=== PATIENT | male | born 1955 | race African-American/Black ===

== ENCOUNTER 2019-02-11 19:17 | Inpatient (IN) | payer OTHER ==
[2019-02-11 23:15] VITALS: BMI 23.7
--- NOTE | 2019-02-11 23:34 | HP ---
CIWA Score Nausea/Vomitin-No Nausea/No Vomiting Muscle Tremors: 4-Moderate,w/Arms Extend Anxiety: 4-Mod. Anxious/Guarded Agitation: 1-Slight > Activity Paroxysmal Sweats: 3 Orientation: 0-Oriented Tacttile Disturbances: 0-None Auditory Disturbances: 0-None Visual Disturbances: 0-None Headache: 0-None Present CIWA-Ar Total Score: 12 - Admission Criteria OASAS Guidelines: Admission for Medically Managed Detox: Requires at least one of the followin. CIWA greater than 12 2. Seizures within the past 24 hours 3. Delirium tremens within the past 24 hours 4. Hallucinations within the past 24 hours 5. Acute intervention needed for co occurring medical disorder 6. Acute intervention needed for co occurring psychiatric disorder 7. Severe withdrawal that cannot be handled at a lower level of care (continued vomiting, continued diarrhea, abnormal vital signs) requiring intravenous medication and/or fluids 8. Patient presents the following: CIWA greater than 12 Admission Criteria Met: Admission criteria met Admission ROS [facility] Chief Complaint: Having alcohol withdrawal. Allergies/Adverse Reactions: Allergies Allergy/AdvReac Type Severity Reaction Status Date / Time No Known Allergies Allergy Verified 02/11/19 23:06 History of Present Illness: First detox admission for this 63 YOM, states mandated into treatment by Child Protective Services and mild complaints of alcohol withdrawal. Mostly anxious. Alcohol use since age 21. States uses 4-5 days/week. Nicotine use since age 17. Denies seizures, blackouts, overdoses. PMHx: HTN, Glaucoma (L) eye; Cataract extraction (L) eye; Blind (R) eye. Gait unsteady since partial blindness. Unsure of medications. To call family in a.m. to get information. MHHx: Denies depression. Denies thoughts of harming self or others. Search Terms: Shabbir Trinh, 1955 Search Date: 02/12/2019 12:32:16 AM The Drug Utilization Report below displays all of the controlled substance prescriptions, if any, that your patient has filled in the last twelve months. The information displayed on this report is compiled from pharmacy submissions to the Department, and accurately reflects the information as submitted by the pharmacies. This report was requested by: Kate Alicea | Reference #: [id number] There are no results for the search terms that you entered. Exam Limitations: No Limitations - Ebola screening Have you traveled outside of the country in the last 21 days: No (N) Have you had contact with anyone from an Ebola affected area: No Have you been sick,other than usual withdrawal symptoms: No (Denies recent exposure to measles) Do you have a fever: No - Review of Systems Constitutional: Diaphoresis EENT: reports: Cataracts (Removed from (L) eye 1 month ago.), Blurred Vision, Other (No vision (R) eye.) Respiratory: reports: No Symptoms reported Cardiac: reports: No Symptoms Reported GI: reports: No Symptoms Reported : reports: No Symptoms Reported Musculoskeletal: reports: Joint Swelling (States "water in knee". Denies pain at this time), Other (States gait unsteady since loss of vision in (R) eye) Integumentary: reports: No Symptoms Reported Neuro: reports: No Symptoms reported Endocrine: reports: No Symptoms Reported Hematology: reports: No Symptoms Reported Psychiatric: reports: Judgement Intact, Orientated x3, Anxious Patient History - PPD History Previous Implant?: Yes Documented Results: Negative w/o proof Implanted On Prior R Admission?: No PPD to be Administered?: Yes - Smoking Cessation Smoking history: Current every day smoker Have you smoked in the past 12 months: Yes Aproximately how many cigarettes per day: 20 Hx Chewing Tobacco Use: No Initiated information on smoking cessation: Yes 'Breaking Loose' booklet given: 02/11/19 - Substance & Tx. History Hx Alcohol Use: Yes Hx Substance Use: Yes Substance Use Type: Alcohol Hx Substance Use Treatment: No - Substances abused Alcohol Substance route: Oral Frequency: Daily Amount used: liquor- 1/2 pint. beer- 1 can Age of first use: 21 Date of last use: 02/10/19 Admission Physical Exam [facility] - Vital Signs Vital Signs: Vital Signs - 24 hr 02/11/19 02/11/19 23:12 23:17 Temperature 98.3 F 98.3 F Pulse Rate 55 L 55 L Respiratory 18 18 Rate Blood Pressure 113/70 113/70 - Physical General Appearance: Yes: Appropriately Dressed, Mild Distress, Tremorous, Sweating, Anxious HEENTM: Yes: Normocephalic, Normal Voice, Pharynx Normal, Orbits ((R) eye ball w / deformity and w/o vision.), Other ((L) eye w/ IOL.) Respiratory: Yes: Lungs Clear, Normal Breath Sounds, No Respiratory Distress Neck: Yes: No masses,lesions,Nodules, Supple Breast: Yes: Breast Exam Deferred Cardiology: Yes: Regular Rate, Murmur, Irregular Abdominal: Yes: Non Tender, Soft, Increased Bowel Sounds Genitourinary: Yes: Within Normal Limits Back: Yes: Normal Inspection Musculoskeletal: Yes: full range of Motion, Other (Gait slightly insteady at time.) Extremities: Yes: Normal Capillary Refill, Tremors (Gross tremors) Neurological: Yes: Fully Oriented, Alert, Motor Strength 5/5 Integumentary: Yes: Normal Color, Dry (Dry skin except for increased facial moisture), Warm Lymphatic: Yes: Within Normal Limits - Diagnostic (1) Alcohol dependence with uncomplicated withdrawal Current Visit: Yes Status: Acute (2) Essential (primary) hypertension Current Visit: Yes Status: Chronic (3) Blind right eye Current Visit: Yes Status: Chronic (4) History of cataract extraction with lens replacement Current Visit: Yes Status: Chronic (5) Nicotine dependence, uncomplicated Current Visit: Yes Status: Chronic Qualifiers: Nicotine product type: cigarettes Qualified Code(s): F17.210 - Nicotine dependence, cigarettes, uncomplicated (6) Glaucoma Current Visit: Yes Status: Chronic Qualifiers: Glaucoma type: unspecified Laterality: left Qualified Code(s): H40.9 - Unspecified glaucoma (7) Unsteady gait Current Visit: Yes Status: Chronic Cleared for Admission S - Detox or Rehab [facility] Level of Care: Medically Managed Detox Regimen/Protocol: Valium Inpatient Rehab Admission - Rehab Decision to Admit Inpatient rehab admission?: No
[2019-02-12] MEDS ORDERED: ACETAMINOPHEN 325 MG TABLET (FP) PO PRN ×2 (00:14)
[2019-02-12] MEDS ORDERED: IBUPROFEN 400 MG TABLET (FP) PO PRN (00:14)
[2019-02-12] MEDS ORDERED: NICOTINE POLACRILEX 2 MG GUM BUC PRN (00:14)
[2019-02-12] MEDS ORDERED: BISMUTH SUBSALICYLATE 524 MG/30 ML UD PO PRN (00:14)
[2019-02-12] MEDS ORDERED: MAGNESIUM HYDROX 2400MG/30ML ORAL SUSPENSION 30 ML CUP PO PRN (00:14)
[2019-02-12] MEDS ORDERED: diazePAM 5 MG TABLET PO ONE (00:14)
[2019-02-12] MEDS ORDERED: METHOCARBAMOL 500 MG TABLET PO PRN (00:14)
[2019-02-12] MEDS ORDERED: MAG HYDROX/AL HYDROX/SIMETH 30 ML UNIT-DOSE CUP PO PRN (00:14)
[2019-02-12] MEDS ORDERED: MENTHOL/PHENOL 1 EACH UD MM PRN (00:14)
[2019-02-12] MEDS ORDERED: MAGNESIUM CITRATE 300 ML BOTTLE PO PRN (00:14)
[2019-02-12] MEDS ORDERED: diazePAM 5 MG TABLET PO PRN (00:14)
[2019-02-12] MEDS ORDERED: PROCHLORPERAZINE MALEATE 5 MG TABLET PO PRN (00:14)
[2019-02-12] MEDS: diazePAM 5 MG TABLET PO SCH ×3 (06:15→22:19)
--- NOTE | 2019-02-12 08:26 | EKG ---
Test Reason : Blood Pressure : / mmHG Vent. Rate : 102 BPM Atrial Rate : 102 BPM P-R Int : 126 ms QRS Dur : 084 ms QT Int : 336 ms P-R-T Axes : 064 033 071 degrees QTc Int : 437 ms SINUS TACHYCARDIA WITH PREMATURE ATRIAL COMPLEXES SEPTAL INFARCT , AGE UNDETERMINED ABNORMAL ECG NO PREVIOUS ECGS AVAILABLE Confirmed by RACHEL DERAS MD ([id number]) on 02/12/2019 8:25:45 AM Referred By: JENA COLEMAN Confirmed By:RACHEL DERAS MD
[2019-02-12] MEDS: PRENATAL VITAMINS W/ FOLIC ACID TABLET (FP) PO SCH (10:26)
[2019-02-12] MEDS: NICOTINE 21 MG/24 HOURS TOPICAL PATCH TD SCH (10:27)
--- NOTE | 2019-02-12 11:54 | PN ---
[facility] CIWA - CIWA Score Nausea/Vomitin-No Nausea/No Vomiting Muscle Tremors: 2 Anxiety: 1-Mildly Anxious Agitation: 1-Slight > Activity Paroxysmal Sweats: 4-Forehead w/Sweat Beads Orientation: 0-Oriented Tacttile Disturbances: 1-Very Mild Itch/Numbness Auditory Disturbances: 0-None Visual Disturbances: 0-None Headache: 1-Very Mild CIWA-Ar Total Score: 10 [facility] Progress Note (SOAP) Subjective: Sweats an mild headache. Objective: 02/12/19 11:56 Vital Signs 02/12/19 02/12/19 05:57 09:35 Temperature 98.4 F 97.6 F Pulse Rate 86 98 H Respiratory 18 18 Rate Blood Pressure 131/95 131/68 Assessment: 02/12/19 11:56 AOX3, in no respiratory distress EENT: WNL full ROM withdrawal symptoms persists. Plan: Continue detox increase fluids monitor for withdrawal symptoms.
[2019-02-12] MEDS: THIAMINE HCL 100 MG TABLET (FP) PO SCH (22:19)
[2019-02-12] MEDS: MELATONIN 5 MG TABLETS PO PRN (22:20)
[2019-02-13] MEDS: diazePAM 5 MG TABLET PO SCH ×2 (07:34→17:10)
[2019-02-13] MEDS: PRENATAL VITAMINS W/ FOLIC ACID TABLET (FP) PO SCH (10:27)
[2019-02-13] MEDS: NICOTINE 21 MG/24 HOURS TOPICAL PATCH TD SCH (10:27)
[2019-02-13 10:57] LABS: URINE APPEARANCE CLEAR; URINE BILIRUBIN NEGATIVE (NEGATIVE); URINE COLOR YELLOW; URINE GLUCOSE (UA) NEGATIVE (NEGATIVE); URINE KETONE NEGATIVE (NEGATIVE); URINE LEUK ESTERASE NEGATIVE (NEGATIVE); URINE NITRITE NEGATIVE (NEGATIVE); URINE PROTEIN NEGATIVE (NEGATIVE)
[2019-02-13 10:58] LABS: HEMATOCRIT 30.6 % (35.4-49); HEMOGLOBIN 9.3 GM/dL (11.7-16.9); MCHC 30.4 g/dl (32.0-35.9); MEAN CELL VOLUME 65.3 fl (80-96); PLATELET COUNT 167 K/MM3 (134-434); RDW 23.2 % (11.9-15.9); WHITE BLOOD COUNT 4.6 K/mm3 (4.0-10.0)
[2019-02-13 11:08] LABS: MCH 19.8 pg (25.7-33.7)
[2019-02-13 13:30] LABS: ALBUMIN 3.6 g/dl (3.4-5.0); ALK PHOS 87 U/L (45-117); ANION GAP 11 MMOL/L (8-16); BILIRUBIN,TOTAL 0.7 mg/dL (0.2-1); BLOOD UREA NITROGEN 34 mg/dL (7-18); CALCIUM 9.4 mg/dL (8.5-10.1); CHLORIDE 100 mmol/L (98-107); CO2 25 mmol/L (21-32); CREATININE 1.2 mg/dL (0.55-1.3); POTASSIUM 3.4 mmol/L (3.5-5.1); SGOT/AST 64 U/L (15-37); SGPT/ALT 52 U/L (13-61); SODIUM 136 mmol/L (136-145); TOT PROT 8.5 g/dl (6.4-8.2)
[2019-02-13 13:32] LABS: GLUCOSE,RANDOM 121 mg/dL (74-106)
[2019-02-13] MEDS ORDERED: cloNIDine HCL 0.1 MG TABLET PO PRN (14:24)
--- NOTE | 2019-02-13 14:32 | PN ---
[facility] CIWA - CIWA Score Nausea/Vomitin-No Nausea/No Vomiting Muscle Tremors: 2 Anxiety: 1-Mildly Anxious Agitation: 0-Normal Activity Paroxysmal Sweats: No Perspiration Orientation: 0-Oriented Tacttile Disturbances: 0-None Auditory Disturbances: 0-None Visual Disturbances: 0-None Headache: 0-None Present CIWA-Ar Total Score: 3 [facility] Progress Note (SOAP) Subjective: Tremor, anxious; patient requested discharge tomorrow at 8am Objective: 02/13/19 14:23 Last Vital Signs Temp Pulse Resp BP Pulse Ox 97.9 F 111 H 18 153/98 02/13/19 13:59 02/13/19 13:59 02/13/19 13:59 02/13/19 13:59 Tachycardia most likely r/t anxiety/withdrawal; elevated b/p (denies htn) start clonidine 0.1mg PO q8hr prn if b/p > 140/90 Laboratory Tests 02/13/19 02/13/19 02/13/19 07:50 07:50 07:50 WBC 4.6 RBC 4.70 Hgb 9.3 L Hct 30.6 L MCV 65.3 L MCH 19.8 L MCHC 30.4 L RDW 23.2 H Plt Count 167 MPV 9.0 Sodium 136 Potassium 3.4 L Chloride 100 Carbon Dioxide 25 Anion Gap 11 BUN 34 H Creatinine 1.2 Creat Clearance w eGFR 61.35 Random Glucose 121 H Calcium 9.4 Total Bilirubin 0.7 AST 64 H ALT 52 Alkaline Phosphatase 87 Total Protein 8.5 H Albumin 3.6 Urine Color Yellow Urine Appearance Clear Urine pH 6.0 Ur Specific [place] 1.017 Urine Protein Negative Urine Glucose (UA) Negative Urine Ketones Negative Urine Blood Negative Urine Nitrite Negative Urine Bilirubin Negative Urine Urobilinogen 2.0 Ur Leukocyte Esterase Negative RPR Titer 02/13/19 07:50 WBC RBC Hgb Hct MCV MCH MCHC RDW Plt Count MPV Sodium Potassium Chloride Carbon Dioxide Anion Gap BUN Creatinine Creat Clearance w eGFR Random Glucose Calcium Total Bilirubin AST ALT Alkaline Phosphatase Total Protein Albumin Urine Color Urine Appearance Urine pH Ur Specific [place] Urine Protein Urine Glucose (UA) Urine Ketones Urine Blood Urine Nitrite Urine Bilirubin Urine Urobilinogen Ur Leukocyte Esterase RPR Titer Nonreactive Labs reviewed: K 3.4, bun 34, serum glucose 121 Assessment: 02/13/19 14:31 Withdrawal symptoms Noted with mild hypokalemia, azotemia and hyperglycemia Plan: Continue detox Encouraged PO water intake Elevated blood pressure: most likely r/t withdrawal; start clonidine 0.1mg PO q8hr prn if b/p > 140/90 Hypokalemia: K Dur 40 Meq PO x 2 doses Azotemia: encouraged PO water hydration Hyperglycemia: most likely r/t withdrawal, follow up with PCP for monitoring ( patient not able to have repeated fasting serum glucose as he requested discharge by 8am tomorrow as he wants to meet with his son before his son goes to school.
[2019-02-13] MEDS ORDERED: POTASSIUM CHLORIDE TABS 20 MEQ TABLET.ER (FP) PO ONE ×2 (14:40→20:00)
[2019-02-13] MEDS: MELATONIN 5 MG TABLETS PO PRN (22:14)
[2019-02-13] MEDS: THIAMINE HCL 100 MG TABLET (FP) PO SCH (22:14)
[2019-02-14] MEDS ORDERED: diazePAM 5 MG TABLET PO ONE (06:00)
[2019-02-14 06:04] VITALS: BP 126/78; PULSE 83; TEMP 98.2
--- NOTE | 2019-02-14 14:46 | DS ---
[facility] Detox Discharge Summary Admission Date: 02/11/19 Discharge Date: 02/14/19 - History Present History: Alcohol Dependence Additional Comments: PATIENT REFUSED AFTERCARE REFERRAL. PATIENT ADVISED TO CONSIDER LOCAL 12-STEP / AA OUTPATIENT SUPPORT GROUPS FOR AFTERCARE. PATIENT WAS DISCHARGED FROM DETOX UNIT IN STABLE MEDICAL CONDITION. Pertinent Past History: HTN, Blind In Right Eye, Glaucoma, History Of Cataract Extraction with Lens Replacement (Left Eye), Unsteady Gait. - Physical Exam Results Vital Signs: Vital Signs Temperature 98.2 F 02/14/19 06:03 Pulse Rate 83 02/14/19 06:03 Respiratory Rate 16 02/14/19 06:03 Blood Pressure 126/78 02/14/19 06:03 O2 Sat by Pulse Oximetry (%) Pertinent Admission Physical Exam Findings: WITHDRAWAL SYMPTOMS. Laboratory Tests 02/13/19 02/13/19 02/13/19 07:50 07:50 07:50 WBC 4.6 RBC 4.70 Hgb 9.3 L Hct 30.6 L MCV 65.3 L MCH 19.8 L MCHC 30.4 L RDW 23.2 H Plt Count 167 MPV 9.0 Sodium 136 Potassium 3.4 L Chloride 100 Carbon Dioxide 25 Anion Gap 11 BUN 34 H Creatinine 1.2 Creat Clearance w eGFR 61.35 Random Glucose 121 H Calcium 9.4 Total Bilirubin 0.7 AST 64 H ALT 52 Alkaline Phosphatase 87 Total Protein 8.5 H Albumin 3.6 Urine Color Yellow Urine Appearance Clear Urine pH 6.0 Ur Specific [place] 1.017 Urine Protein Negative Urine Glucose (UA) Negative Urine Ketones Negative Urine Blood Negative Urine Nitrite Negative Urine Bilirubin Negative Urine Urobilinogen 2.0 Ur Leukocyte Esterase Negative RPR Titer 02/13/19 07:50 WBC RBC Hgb Hct MCV MCH MCHC RDW Plt Count MPV Sodium Potassium Chloride Carbon Dioxide Anion Gap BUN Creatinine Creat Clearance w eGFR Random Glucose Calcium Total Bilirubin AST ALT Alkaline Phosphatase Total Protein Albumin Urine Color Urine Appearance Urine pH Ur Specific [place] Urine Protein Urine Glucose (UA) Urine Ketones Urine Blood Urine Nitrite Urine Bilirubin Urine Urobilinogen Ur Leukocyte Esterase RPR Titer Nonreactive LABS NOTED. - Treatment Hospital Course: Detox Protocol Followed, Detoxed Safely, Responded well, Discharged Condition Good Patient has Accepted a Rehab Referral to: PT. DECLINED; ADVISED TO CONSIDER LOCAL 12-STEP/AA OUTPATIENT SUPPORT GROUP - Medication Discharge Medications: Ambulatory Orders Unobtainable 02/11/19 - Diagnosis (1) Alcohol dependence with uncomplicated withdrawal Status: Acute (2) Blind right eye Status: Chronic (3) Essential (primary) hypertension Status: Chronic (4) Glaucoma Status: Chronic Qualifiers: Glaucoma type: unspecified Laterality: left Qualified Code(s): H40.9 - Unspecified glaucoma (5) History of cataract extraction with lens replacement Status: Chronic (6) Nicotine dependence, uncomplicated Status: Chronic Qualifiers: Nicotine product type: cigarettes Qualified Code(s): F17.210 - Nicotine dependence, cigarettes, uncomplicated (7) Unsteady gait Status: Chronic - AMA Did Patient Leave Against Medical Advice: No
== END 2019-02-14 08:53 | disposition home or self-care (01) | DRG 897 ==
LOC: YASAS 19:17 → Y6N 23:49
PROVIDERS: ADMIT Surgery; ATTEND Surgery
PROC: HZ2ZZZZ Detoxification Services for Substance Abuse Treatment (ICD-10-PCS; principal; 2019-02-11)
DX: F10.230 Alcohol dependence with withdrawal, uncomplicated (principal); I10 Essential (primary) hypertension; H54.61 Unqualified visual loss, right eye, normal vision left eye; H40.9 Unspecified glaucoma; R26.81 Unsteadiness on feet
CPT/HCPCS: 36415; 80053; 81003; 85027; 86593; 93005; 93010